=== PATIENT | female | born 1955 | race African-American/Black ===

== ENCOUNTER 2021-07-25 17:05 | Inpatient (IN) | payer MEDICARE, OTHER ==
[~2021-07-25] VITALS: Ht 157.5 cm; Wt 112.5 kg
[2021-07-25] MEDS ORDERED: LIDOCAINE HCL/PF 1% 2ML VIAL ONE (17:25)
[2021-07-25 17:45] LABS: BASOPHILS % 0.3 % (0.0-2.0); EOSINOPHILS % 0.7 % (0.0-5.0); HEMATOCRIT. 35.2 % (36.0-48.0); HEMOGLOBIN. 11.6 g/dL (12.0-16.0); LYMPHOCYTES % 22.9 % (20.0-50.0); MEAN CORPUSCULAR HEMOGLOBIN 27.7 pg (28.0-32.0); MEAN CORPUSCULAR VOLUME 84.1 fL (81.0-99.0); MEAN PLATELET VOLUME 7.7 fl (7.4-10.4); MONOCYTES % 8.1 % (2.0-8.0); PLATELET 178 x1000/uL (130-400); RED BLOOD CELL COUNT 4.18 mill/uL (4.2-5.4)
[2021-07-25 17:56] LABS: BG BASE EXCESS 9.5 mmol/L (-2.0-2.0); BG CARBOXYHEMOGLOBIN 1.5 % (0.5-1.5); BG DEOXYHEMOGLOBIN 20.6 % (0.0-5.0); BG HCO3 ACT 36.7 mmol/L (22.0-26.0); BG METHEMOGLOBIN 0.2 % (0.0-1.5); BG OXYHEMOGLOBIN 77.7 % (94.0-97.0); BG PCO2 62.4 mmHg (35.0-45.0); BG PH 7.387 (7.350-7.450); BG PO2 45.7 mmHg (75.0-100.0); BG SAMPLE SITE RIGHT RADIAL; BG TOTAL HEMOGLOBIN 12.7 g/dL (12.0-18.0); BG VENT MODE ROOM AIR
[2021-07-25 17:56] LABS: PROTHROMBIN TIME 10.5 sec (9.6-11.0)
[2021-07-25 18:02] LABS: CHLORIDE 98 mEq/L (98-107)
[2021-07-25 18:06] LABS: ETHANOL BLOOD < 10 mg/dL
[2021-07-26 02:25] LABS: CLARITY URINE CLEAR (CLEAR); COLOR URINE YELLOW (YELLOW); KETONES URINE NEGATIVE (NEGATIVE); LEUKOCYTE ESTERASE URINE 1+ (NEGATIVE); NITRITE URINE NEGATIVE (NEGATIVE); OCCULT BLOOD URINE NEGATIVE (NEGATIVE); PROTEIN URINE NEGATIVE (NEGATIVE); SPECIFIC GRAVITY URINE 1.015 (1.005-1.030)
[2021-07-26 03:14] LABS: *AMPHETAMINES SCREEN URINE NEGATIVE (NEGATIVE)
[2021-07-26 03:15] LABS: *BARBITURATES SCREEN URINE NEGATIVE (NEGATIVE); *BENZODIAZEPINES SCREEN URINE NEGATIVE (NEGATIVE); *COCAINE SCREEN URINE NEGATIVE (NEGATIVE); CANNABINOID URINE SCREEN NEGATIVE (NEGATIVE); METHADONE URINE SCREEN NEGATIVE (NEGATIVE); OPIATES URINE SCREEN NEGATIVE (NEGATIVE); PHENCYCLIDINE URINE SCREEN NEGATIVE (NEGATIVE)
[2021-07-26 05:11] VITALS: BP 117/50
[2021-07-26] MEDS ORDERED: CALC-769 MT (07:02)
[2021-07-26] MEDS ORDERED: LISI10TA26 MT (07:02)
[2021-07-26] MEDS ORDERED: FURO-152 MT (07:02)
[2021-07-26] MEDS ORDERED: ASPI-1497 MT (07:02)
[2021-07-26] MEDS ORDERED: MORPHINE SULFATE 2 MG/ML CPJ (NOT FOR IM USE) IV PRN (07:15)
[2021-07-26] MEDS ORDERED: CLONIDINE 0.1MG TABLET PO PRN (07:15)
[2021-07-26] MEDS ORDERED: HYDROCODONE/ACETAMINOPHEN 5/325MG TABLET PO PRN (07:15)
[2021-07-26] MEDS ORDERED: ENOXAPARIN 40MG/0.4ML SYR SUBCUT SCH ×2 (07:15→09:00)
[2021-07-26] MEDS ORDERED: NALOXONE HCL 0.4MG/ML VIAL IV PRN (07:15)
[2021-07-26] MEDS ORDERED: LORAZEPAM 2MG/ML CPJ IV PRN (07:15)
[2021-07-26] MEDS ORDERED: ONDANSETRON HCL 4MG/2ML INJ IV PRN (07:15)
[2021-07-26] MEDS ORDERED: ACETAMINOPHEN 650MG/20.3ML UDC GT PRN (07:15)
[2021-07-26] MEDS ORDERED: GUAIFENESIN 200MG/10ML SUGAR FREE UDC PO PRN (07:15)
[2021-07-26 08:00] VITALS: BP 118/72
[2021-07-26] MEDS: METHYLPREDNISOLONE SOD SUCC 125 MG/2 ML VIAL IV SCH ×2 (08:00→09:01)
[2021-07-26] MEDS: THIAMINE HCL 100MG TABLET PO SCH (09:01)
[2021-07-26] MEDS ORDERED: POTASSIUM CHLORIDE 20MEQ TABLET SR PO NR (10:30)
[2021-07-26] MEDS ORDERED: IPRATROPIUM/ALBUTEROL 0.5-3(2.5)MG/3ML NEB HHN PRN (10:30)
[2021-07-26] MEDS: LISINOPRIL 10MG TABLET PO SCH (11:33)
[2021-07-26] MEDS: ASPIRIN 81MG TABLET PO SCH (11:33)
[2021-07-26 12:00] VITALS: BP 135/76
[2021-07-26] MEDS: FUROSEMIDE 40MG/4ML VIAL IVP SCH ×2 (12:11→17:52)
[2021-07-26 16:00] VITALS: BP 128/89
[2021-07-26 16:25] LABS: CREATINE KINASE 118 IU/L (26-192)
[2021-07-26 16:26] LABS: CREATINE KINASE MB FRACTION < 1.0 ng/mL (0.5-3.6)
[2021-07-26 20:00] VITALS: BP 127/52
[2021-07-26] MEDS: ENOXAPARIN 30MG/0.3ML SYR SUBCUT SCH (21:14)
[2021-07-27] VITALS: BP 133/67
[2021-07-27 01:11] LABS: CREATINE KINASE 112 IU/L (26-192)
[2021-07-27 01:12] LABS: CREATINE KINASE MB FRACTION < 1.0 ng/mL (0.5-3.6)
[2021-07-27 04:00] VITALS: BP 131/56
[2021-07-27 07:06] LABS: BASOPHILS % 0.3 % (0.0-2.0); EOSINOPHILS % 0.9 % (0.0-5.0); HEMATOCRIT. 34.5 % (36.0-48.0); HEMOGLOBIN. 10.9 g/dL (12.0-16.0); LYMPHOCYTES % 29.8 % (20.0-50.0); MEAN CORPUSCULAR HEMOGLOBIN 27.2 pg (28.0-32.0); MEAN CORPUSCULAR VOLUME 86.1 fL (81.0-99.0); MEAN PLATELET VOLUME 8.5 fl (7.4-10.4); MONOCYTES % 8.1 % (2.0-8.0); NEUTROPHILS % 60.9 % (40.0-76.0); PLATELET 166 x1000/uL (130-400); RED BLOOD CELL COUNT 4.01 mill/uL (4.2-5.4); RED CELL DISTRIBUTION WIDTH 16.2 % (11.6-14.6)
[2021-07-27 07:46] LABS: CHLORIDE 95 mEq/L (98-107)
[2021-07-27 08:00] VITALS: BP 135/64
[2021-07-27] MEDS: FUROSEMIDE 40MG/4ML VIAL IVP SCH ×2 (08:30→22:01)
[2021-07-27] MEDS: THIAMINE HCL 100MG TABLET PO SCH (08:31)
[2021-07-27] MEDS: ENOXAPARIN 30MG/0.3ML SYR SUBCUT SCH ×2 (08:31→22:03)
[2021-07-27] MEDS: LISINOPRIL 10MG TABLET PO SCH (08:31)
[2021-07-27] MEDS: ASPIRIN 81MG TABLET PO SCH (08:31)
[2021-07-27] MEDS ORDERED: ASPIRIN 81MG TABLET PO SCH (09:00)
[2021-07-27 12:00] VITALS: BP 142/63
[2021-07-27 16:00] VITALS: BP 113/70
[2021-07-27 20:00] VITALS: BP 150/77
[2021-07-28] VITALS: BP 146/89
[2021-07-28 04:00] VITALS: BP 139/77
[2021-07-28] MEDS: FUROSEMIDE 40MG/4ML VIAL IVP SCH (06:08)
[2021-07-28 08:00] VITALS: BP 138/73
[2021-07-28] MEDS: LISINOPRIL 10MG TABLET PO SCH (09:25)
[2021-07-28] MEDS: ASPIRIN 81MG TABLET PO SCH (09:25)
[2021-07-28] MEDS: ENOXAPARIN 30MG/0.3ML SYR SUBCUT SCH ×2 (09:25→21:16)
[2021-07-28] MEDS: THIAMINE HCL 100MG TABLET PO SCH (09:25)
[2021-07-28 10:37] LABS: BASOPHILS % 0.7 % (0.0-2.0); EOSINOPHILS % 0.4 % (0.0-5.0); HEMATOCRIT. 35.3 % (36.0-48.0); HEMOGLOBIN. 11.2 g/dL (12.0-16.0); LYMPHOCYTES % 29.4 % (20.0-50.0); MEAN CORPUSCULAR HEMOGLOBIN 27.6 pg (28.0-32.0); MEAN CORPUSCULAR VOLUME 86.9 fL (81.0-99.0); MEAN PLATELET VOLUME 8.6 fl (7.4-10.4); NEUTROPHILS % 60.5 % (40.0-76.0); PLATELET 163 x1000/uL (130-400); RED BLOOD CELL COUNT 4.06 mill/uL (4.2-5.4)
[2021-07-28 10:53] LABS: CHLORIDE 94 mEq/L (98-107)
[2021-07-28 11:02] LABS: TOTAL IRON BINDING CAPACITY 597 ug/dL (250-450)
[2021-07-28 11:19] LABS: FOLIC ACID (FOLATE) SERUM 8.8 ng/mL (>5.38)
[2021-07-28] MEDS ORDERED: METOPROLOL TARTRATE 25MG TABLET PO NR (11:30)
[2021-07-28 12:00] VITALS: BP 128/79
[2021-07-28 16:00] VITALS: BP 140/102
[2021-07-28] MEDS: LIDOCAINE 5% PATCH TOP SCH (17:00)
[2021-07-28] MEDS: FERROUS SULFATE 325MG TABLET PO SCH (17:36)
[2021-07-28] MEDS: ASCORBIC ACID 500 MG TABLET PO SCH (17:36)
[2021-07-28 20:00] VITALS: BP 124/65
[2021-07-28] MEDS: METOPROLOL TARTRATE 25MG TABLET PO SCH (21:16)
[2021-07-29] VITALS: BP 133/78
[2021-07-29 04:00] VITALS: BP 147/80
[2021-07-29] MEDS: FERROUS SULFATE 325MG TABLET PO SCH ×3 (06:53→18:52)
[2021-07-29 08:00] VITALS: BP 131/65
[2021-07-29] MEDS: THIAMINE HCL 100MG TABLET PO SCH (10:29)
[2021-07-29] MEDS: ASPIRIN 81MG TABLET PO SCH (10:29)
[2021-07-29] MEDS: ENOXAPARIN 30MG/0.3ML SYR SUBCUT SCH ×2 (10:29→22:15)
[2021-07-29] MEDS: FUROSEMIDE 40MG/4ML VIAL IVP SCH (10:29)
[2021-07-29] MEDS: CYANOCOBALAMIN 1000MCG/ML VIAL IM SCH (10:29)
[2021-07-29] MEDS: ASCORBIC ACID 500 MG TABLET PO SCH (10:30)
[2021-07-29] MEDS: METOPROLOL TARTRATE 25MG TABLET PO SCH ×2 (10:30→22:14)
[2021-07-29] MEDS: LISINOPRIL 10MG TABLET PO SCH (10:37)
[2021-07-29 12:00] VITALS: BP 117/48
[2021-07-29 16:00] VITALS: BP 119/55
[2021-07-29] MEDS: LIDOCAINE 5% PATCH TOP SCH (17:00)
[2021-07-29 20:00] VITALS: BP 124/73
[2021-07-30] VITALS: BP 141/57
[2021-07-30 04:00] VITALS: BP 148/83
[2021-07-30] MEDS: FERROUS SULFATE 325MG TABLET PO SCH ×3 (07:40→18:09)
[2021-07-30 08:00] VITALS: BP 128/79
[2021-07-30] MEDS: CYANOCOBALAMIN 1000MCG/ML VIAL IM SCH (09:00)
[2021-07-30] MEDS: FUROSEMIDE 40MG/4ML VIAL IVP SCH (10:59)
[2021-07-30] MEDS: ASPIRIN 81MG TABLET PO SCH (10:59)
[2021-07-30] MEDS: ASCORBIC ACID 500 MG TABLET PO SCH (10:59)
[2021-07-30] MEDS: LISINOPRIL 10MG TABLET PO SCH (10:59)
[2021-07-30] MEDS: METOPROLOL TARTRATE 25MG TABLET PO SCH ×2 (11:00→21:00)
[2021-07-30] MEDS: THIAMINE HCL 100MG TABLET PO SCH (11:00)
[2021-07-30] MEDS: ENOXAPARIN 30MG/0.3ML SYR SUBCUT SCH ×2 (11:00→21:00)
[2021-07-30 12:00] VITALS: BP 133/77
[2021-07-30 16:00] VITALS: BP 144/1
[2021-07-30] MEDS: LIDOCAINE 5% PATCH TOP SCH (17:00)
[2021-07-30 20:00] VITALS: BP 139/83
[2021-07-31 04:00] VITALS: BP 143/82
[2021-07-31 08:00] VITALS: BP 137/87
[2021-07-31] MEDS: ASCORBIC ACID 500 MG TABLET PO SCH (09:15)
[2021-07-31] MEDS: FUROSEMIDE 40MG/4ML VIAL IVP SCH (09:15)
[2021-07-31] MEDS: FERROUS SULFATE 325MG TABLET PO SCH ×3 (09:15→17:21)
[2021-07-31] MEDS: CYANOCOBALAMIN 1000MCG/ML VIAL IM SCH (09:15)
[2021-07-31] MEDS: ASPIRIN 81MG TABLET PO SCH (09:15)
[2021-07-31] MEDS: THIAMINE HCL 100MG TABLET PO SCH (09:15)
[2021-07-31] MEDS: LISINOPRIL 10MG TABLET PO SCH (09:15)
[2021-07-31] MEDS: ENOXAPARIN 30MG/0.3ML SYR SUBCUT SCH ×3 (09:16→20:36)
[2021-07-31] MEDS: METOPROLOL TARTRATE 25MG TABLET PO SCH ×2 (09:16→20:20)
[2021-07-31 12:00] VITALS: BP 136/76
[2021-07-31] MEDS ORDERED: FURO-151 MT (13:39)
[2021-07-31 16:00] VITALS: BP 120/72
[2021-07-31] MEDS: LIDOCAINE 5% PATCH TOP SCH (17:24)
[2021-07-31 17:54] VITALS: BP 120/72
[2021-07-31 20:00] VITALS: BP 139/92
[2021-08-11] MEDS ORDERED: CYANOCOBALAMIN 1000MCG/ML VIAL IM SCH (09:00)
== END 2021-07-31 21:12 | disposition home or self-care (01) | DRG 291 ==
LOC: ER 17:05 → MICUSO 19:32 → EDBEDREQ 19:33 → EDBEDREQTM 19:33 → 8WST 07-26 02:29
PROVIDERS: ADMIT Internal Medicine Nephrology; ATTEND Internal Medicine Nephrology
DX: I11.0 Hypertensive heart disease with heart failure (principal); J96.21 Acute and chronic respiratory failure with hypoxia; I50.43 Acute on chronic combined systolic (congestive) and diastolic (congestive) heart failure; J44.1 Chronic obstructive pulmonary disease with (acute) exacerbation; E44.0 Moderate protein-calorie malnutrition; Z68.42 Body mass index [BMI] 45.0-49.9, adult; E87.6 Hypokalemia; J44.9 Chronic obstructive pulmonary disease, unspecified; E78.5 Hyperlipidemia, unspecified; E78.00 Pure hypercholesterolemia, unspecified; R53.81 Other malaise; E66.01 Morbid (severe) obesity due to excess calories; E53.8 Deficiency of other specified B group vitamins; D50.9 Iron deficiency anemia, unspecified; S93.402A Sprain of unspecified ligament of left ankle, initial encounter; E11.65 Type 2 diabetes mellitus with hyperglycemia; E11.42 Type 2 diabetes mellitus with diabetic polyneuropathy; Z20.822 Contact with and (suspected) exposure to COVID-19; X58.XXXA Exposure to other specified factors, initial encounter; Z86.73 Personal history of transient ischemic attack (TIA), and cerebral infarction without residual deficits; Z99.81 Dependence on supplemental oxygen; Z59.00 Homelessness unspecified; Z88.8 Allergy status to other drugs, medicaments and biological substances; Z71.6 Tobacco abuse counseling; Z82.49 Family history of ischemic heart disease and other diseases of the circulatory system; Y93.89 Activity, other specified; Y92.89 Other specified places as the place of occurrence of the external cause; Y99.8 Other external cause status
CPT/HCPCS: 36415; 36600; 71045; 73600; 73620; 80048; 80053; 80305; 80320; 81003; 82306; 82375; 82550; 82553; 82607; 82728; 82746; 82805; 83036; 83540; 83550; 83605; 83735; 83880; 84443; 84484; 85025; 87426; 93005; 93306; 97110; 97116; 97162; 97166; 97530; 97535; 99285; C1893; J1650; J1940; J2930; J3420; J3490; G0480